=== PATIENT | female | born 1965 ===

== ENCOUNTER 2018-02-27 01:16 | Emergency (ER) | payer OTHER ==
[2018-02-27 01:53] VITALS: PULSE 64; RESP 16; TEMP 98.5; O2SAT 98
[2018-02-27] MEDS ORDERED: Albuterol-Ipratrop 3 mg / 0.5 (3 ml) UD INH STA (01:59)
[2018-02-27] MEDS ORDERED: Albuterol 0.083% Inhal Sol (2.5 mg/3 mL) UD INH STA (01:59)
--- NOTE | 2018-02-27 03:25 | ED PDOC ---
HPI: Asthma Time Seen by Provider: 02/27/18 01:43 Chief Complaint (Nursing): Cough, Cold, Congestion Chief Complaint (Provider): Asthma, Allergies History Per: Patient History/Exam Limitations: no limitations Onset/Duration Of Symptoms: Days (x 2) Current Symptoms Are (Timing): Other (Worsening) Associated Symptoms: Cough, Itching (eyes), Other (nasal congestion) Precipitating Factors: Weather Change, Allergies Additional Complaint(s): 52-year-old female, with a past medical history of asthma and seasonal allergies , presents to ED complaining of nasal congestion, itchy eyes, cough, and chest tightness for the last 2 days which worsened tonight. Does report her asthma and allergies tend to act up when the seasons change. Patient reports she never has required intubations or admissions for her asthma. Patient states she took Flonase at 09:00. (-) fever, (-) chills, (-) chest pain, (-) SOB, (-) prolonged immobility (-) calf tenderness, (-) diarrhea, (-) abdominal pain, (-) recent travel, (-) rash, (-) urinary symptoms. (+) sick contact: son. PMD: Brady GutiérrezMarah Mandoamberfaith Past Medical History Reviewed: Historical Data, Nursing Documentation, Vital Signs Vital Signs: Last Vital Signs Temp 98.5 F 02/27/18 01:43 Pulse 64 02/27/18 01:43 Resp 16 02/27/18 01:43 BP Pulse Ox 98 02/27/18 01:43 - Medical History PMH: Asthma - Surgical History Other surgeries: left breast "cyst" removal - Family History Family History: States: Unknown Family Hx - Living Arrangements Living Arrangements: With Family - Social History Current smoker - smoking cessation education provided: No Alcohol: None Drugs: Denies - Home Medications Home Medications: Ambulatory Orders Medication Instructions Recorded Albuterol Sulfate [Ventolin Hfa] 1 puff IH Q4 PRN #1 each 02/27/18 Prednisone [Deltasone] 40 mg PO DAILY #10 tablet 02/27/18 - Allergies Allergies/Adverse Reactions: Allergies Allergy/AdvReac Type Severity Reaction Status Date / Time pollen extracts Allergy WHEEZING Verified 02/27/18 01:54 Review of Systems ROS Statement: Except As Marked, All Systems Reviewed And Found Negative Constitutional: Negative for: Fever Eyes: Positive for: Other (Itchy eyes) ENT: Positive for: Nose Congestion Cardiovascular: Positive for: Other (Chest tightness). Negative for: Chest Pain Respiratory: Positive for: Cough Gastrointestinal: Negative for: Abdominal Pain, Diarrhea Genitourinary Female: Negative for: Dysuria, Hematuria Skin: Negative for: Rash Physical Exam - Reviewed Nursing Documentation Reviewed: Yes Vital Signs Reviewed: Yes - Physical Exam Appears: Positive for: Well, Non-toxic, No Acute Distress Head Exam: Positive for: ATRAUMATIC, NORMOCEPHALIC Skin: Positive for: Normal Color, Warm, Dry Eye Exam: Positive for: EOMI, PERRL, Conjunctival injection (mild bilaterally (- ) mucus discharge (-) crusting (-) chemosis (-) hyphema. EOMI and painless.). Negative for: Periorbital swelling, Periorbital tenderness ENT: Positive for: Pharynx Is (clear, uvula midline), TM Is/Are (nonbulging and nonerythematous bilaterally), Nasal Congestion (clear rhinorrhea), Other (Mucus membranes moist). Negative for: Sinus Pain/Drainage, Pharyngeal Erythema Neck: Positive for: Painless ROM, Supple Cardiovascular/Chest: Positive for: Regular Rate, Rhythm Respiratory: Positive for: Wheezing (Scattered expiratory wheezing), Other ( respirations even and nonlabored, speaking in full sentences.). Negative for: Decreased Breath Sounds, Accessory Muscle Use, Stridor, Respiratory Distress Gastrointestinal/Abdominal: Positive for: Soft. Negative for: Tenderness, Distended, Guarding Extremity: Positive for: Normal ROM. Negative for: Calf Tenderness, Deformity Neurologic/Psych: Positive for: Alert, Oriented (x 3), Gait (steady in ED). Negative for: Aphasia, Facial Droop - ECG O2 Sat by Pulse Oximetry: 98 (RA) Pulse Ox Interpretation: Normal Medical Decision Making Medical Decision Making: Time: 01:59 Impression(s): Asthma Exacerbation, Seasonal Allergies Plan: - Albuterol 0.083% Inhal Taina (2.5 m/3ml ) - Duoneb 3 mg/0.5 mg (3 ml) - PredniSONE PO 0245 On re-evaluation, patient reports improvement of symptoms, denies any SOB, chest pain, palpitation, or cough. On exam, patient remains AAOx3, in no acute distress. Lungs clear to auscultation with resolution of wheezing, cardiac RRR, abdomen soft, non-tender, repeat neuro exam shows no focal findings. Patient speaking in full sentences with no evidence of respiratory distress. Repeat O2: 98% on RA. VSS, stable for discharge. Lab/Diagnostic results d/w the patient in great detail. Diagnosis of asthma exacerbation, seasonal allergies d/w the patient. Based on history, exam and diagnostic results, plan will be for outpatient follow up. Patient instructed to follow-up with pmd / referral provided / the clinic in 1- 2 days without fail. Advised to take medication as prescribed. Return to the emergency room at any time for any new or worsening symptoms. Patient states she fully agrees with and understands discharge instructions. States that she agrees with the plan and disposition. Verbalized and repeated discharge instructions and plan. I have given the patient opportunity to ask any additional questions. Scribe Attestation: Documented by Dwayne Goode, acting as a scribe for Dinora Sebastian PA-C Provider Scribe Attestation: All medical record entries made by the Scribe were at my direction and personally dictated by me. I have reviewed the chart and agree that the record accurately reflects my personal performance of the history, physical exam, medical decision making, and the department course for this patient. I have also personally directed, reviewed, and agree with the discharge instructions and disposition. Disposition - Clinical Impression Clinical Impression: Asthma exacerbation, Cough, Seasonal allergies - Patient ED Disposition Is Patient to be Admitted: No Counseled Patient/Family Regarding: Diagnosis, Need For Followup, Rx Given - Disposition Referrals: Brady Calderon MD [Family Provider] - Disposition: Routine/Home Disposition Time: 02:55 Condition: STABLE Additional Instructions: FOLLOW UP WITH PMD IN 1-2 DAYS WITHOUT FAIL. RETURN TO ED WITH ANY NEW OR WORSENING SYMPTOMS. Prescriptions: Albuterol Sulfate [Ventolin Hfa] 1 puff IH Q4 PRN #1 each PRN Reason: dyspnea Prednisone [Deltasone] 40 mg PO DAILY #10 tablet Instructions: Seasonal Allergies in Adults, Asthma, Adult (DC), Inhalers Forms: [employer] (Nicaraguan) Print Language: ESTONIAN - POLeila Present On Arrival: None
== END 2018-02-27 03:28 | disposition home or self-care (01) ==
LOC: H.ER 01:16
DX: J45.901 Unspecified asthma with (acute) exacerbation (principal); J30.2 Other seasonal allergic rhinitis